=== PATIENT | female | born 1985 | race Caucasian/White ===

== ENCOUNTER 2019-03-20 21:09 | Emergency (ER) | payer OTHER ==
[2019-03-20 21:20] VITALS: BP 131/96; PULSE 78
--- NOTE | 2019-03-20 22:21 | EDM.PDOC ---
ED HPI GENERAL MEDICAL PROBLEM - General Chief Complaint: Cardiovascular Problem Stated Complaint: LEFT ARM PAIN FAST HEART RATE NEW THYROID MED Time Seen by Provider: 03/20/19 21:11 Source of Information: Reports: Patient History Limitations: Reports: No Limitations - History of Present Illness INITIAL COMMENTS - FREE TEXT/NARRATIVE: patient presents with intermittent left-sided chest pain, stabbing pain that causes sharp pain into the left sided chest for the shoulder blade, not associated with the syncope or near-syncope no diaphoresis no nausea or vomiting. She occasionally notes, to the left neck and fell a little numbness to the left upper posterior arm. Had palpitations last night, is currently getting re-started back on thyroid replacement for hypothyroidism. She has had weight gain. She is a nonsmoker, no family history of any heart disease, paternal grandfather with the stroke. No history of any diabetes, unknown cholesterol levels, no DVT risk factors. No lower extremity swelling. Nothing really makes the pain better or worse occurs at rest. Using stressors, no anxiety. Onset: Sudden Duration: Minutes:, Intermittent, Waxing/Waning Location: Reports: Chest Quality: Reports: Sharp Severity: Moderate Improves with: Reports: None Worsens with: Reports: None Associated Symptoms: Denies: Cough, Diaphoresis, Headaches, Nausea/Vomiting Bilateral Chest Pain Score (Numeric/FACES): 2 - Related Data Allergies Allergy/AdvReac Type Severity Reaction Status Date / Time cefaclor [From Ceclor] Allergy Unknown Hives Verified 03/20/19 21:20 MST gluten Allergy Unknown Abdominal Verified 03/20/19 21:20 MST Pain Home Meds: Home Meds Cholecalciferol (Vitamin D3) [Vitamin D] 5,000 mg PO DAILY 03/20/19 [History] Levothyroxine [Synthroid] 100 mg PO DAILY 03/20/19 [History] Past Medical History [employer] History: Reports: Musculoskeletal History: Reports: Other (See Below) Other Musculoskeletal History: begein follicuation syndrome Endocrine/Metabolic History: Reports: Hypothyroidism Dermatologic History: Reports: Other (See Below) Other Dermatologic History: hydranitis - Past Surgical History GI Surgical History: Reports: Colonoscopy Female Surgical History: Reports: Section Social & Family History - Family History Family Medical History: Noncontributory - Tobacco Use Smoking Status *Q: Never Smoker - Caffeine Use Caffeine Use: Reports: Coffee - Recreational Drug Use Recreational Drug Use: No ED ROS GENERAL - Review of Systems Review Of Systems: See Below Constitutional: Denies: Fever, Chills, Diaphoresis HEENT: Reports: No Symptoms. Denies: Eye Discharge, Rhinitis, Sinus Problem, Vertigo Respiratory: Reports: No Symptoms. Denies: Shortness of Breath, Cough Cardiovascular: Reports: No Symptoms, Chest Pain, Lightheadedness, Palpitations. Denies: Blood Pressure Problem, Dyspnea on Exertion, Orthopnea, PND, Syncope Endocrine: Denies: Fatigue GI/Abdominal: Denies: Abdominal Pain, Diarrhea, Nausea, Vomiting : Denies: Dysuria Musculoskeletal: Reports: No Symptoms Skin: Denies: Bruising, Rash Neurological: Reports: Dizziness. Denies: Headache, Numbness, Paresthesia, Tingling Psychiatric: Reports: No Symptoms. Denies: Anxiety Hematologic/Lymphatic: Reports: No Symptoms ED EXAM, GENERAL - Physical Exam Exam: See Below Exam Limited By: No Limitations General Appearance: Alert, WD/WN, No Apparent Distress Nose: Normal Inspection Throat/Mouth: Normal Inspection Head: Atraumatic, Normocephalic Neck: Normal Inspection, Supple, Non-Tender. No: Lymphadenopathy (L), Lymphadenopathy (R) Respiratory/Chest: No Respiratory Distress, Lungs Clear, Normal Breath Sounds, No Accessory Muscle Use, Other (Principal chest pain left sided.) Cardiovascular: Normal Peripheral Pulses, Regular Rate, Rhythm, No Edema, No JVD , No Murmur GI/Abdominal: Normal Bowel Sounds, Soft, Non-Tender, No Organomegaly, No Distention Extremities: Normal Inspection, No Pedal Edema, Normal Capillary Refill Neurological: Alert, Oriented, No Motor/Sensory Deficits Psychiatric: Normal Affect, Normal Mood. No: Anxious Skin Exam: Warm, Dry. No: Diaphoretic EKG INTERPRETATION EKG Date: 03/20/19 Rhythm: NSR (normal sinus rhythm rate of 77 [place] 117 QRS with 91 QT corrected 446 , no acute ischemic changes noted.) Course - Vital Signs Last Recorded V/S: Last Vital Signs Temp 99.0 F 03/20/19 21:14 [facility] Pulse 78 03/20/19 21:14 [facility] Resp 20 03/20/19 21:14 [facility] BP 131/96 H 03/20/19 21:14 [facility] Pulse Ox 97 03/20/19 21:14 MST - Orders/Labs/Meds Orders: Active Orders 24 hr Category Date Time Status EKG Documentation Completion [RC] STAT Care 03/20/19 21:37 Active Chest 2V [CR] Stat Exams 03/20/19 21:36 Taken Labs: Laboratory Tests 03/20/19 03/20/19 03/20/19 Range/Units 21:49 MST 21:49 MST 21:49 MST WBC 10.29 H (3.98-10.04) K/mm3 RBC 4.97 (3.98-5.22) M/mm3 Hgb 15.5 (11.2-15.7) gm/dl Hct 45.3 H (34.1-44.9) % MCV 91.1 (79.4-94.8) fl MCH 31.2 (25.6-32.2) pg MCHC 34.2 (32.2-35.5) g/dl RDW Std Deviation 44.0 (36.4-46.3) fL Plt Count 234 (182-369) K/mm3 MPV 12.0 (9.4-12.3) fl Neutrophils % (Manual) 78 H (40-60) % Band Neutrophils % 0 (0-10) % Lymphocytes % (Manual) 17 L (20-40) % Atypical Lymphs % 0 % Monocytes % (Manual) 2 (2-10) % Eosinophils % (Manual) 3 (0.7-5.8) % Basophils % (Manual) 0 L (0.1-1.2) Platelet Estimate Adequate RBC Morph Comment Normal D-Dimer, Quantitative < 0.19 L (0.19-0.50) mg/L Sodium 138 (136-145) mEq/L Potassium 3.8 (3.5-5.1) mEq/L Chloride 101 (98-107) mEq/L Carbon Dioxide 24 (21-32) mEq/L Anion Gap 16.8 H (5-15) BUN 25 H (7-18) mg/dL Creatinine 1.0 (0.55-1.02) mg/dL Est Cr Clr Drug Dosing 66.19 mL/min Estimated GFR (MDRD) > 60 (>60) mL/min BUN/Creatinine Ratio 25.0 H (14-18) Glucose 92 (74-106) mg/dL Calcium 9.4 (8.5-10.1) mg/dL Total Bilirubin 0.4 (0.2-1.0) mg/dL AST 27 (15-37) U/L ALT 29 (14-59) U/L Alkaline Phosphatase 89 (46-116) U/L Troponin I < 0.017 (0.00-0.056) ng/mL Total Protein 7.8 (6.4-8.2) g/dl Albumin 4.3 (3.4-5.0) g/dl Globulin 3.5 gm/dL Albumin/Globulin Ratio 1.2 (1-2) Lipase 155 (73-393) U/L - Radiology Interpretation Free Text/Narrative:: Two-view chest x-ray shows normal cardiac silhouette, no pleural effusion, no obvious infiltrates noted. No widened mediastinum, no acute findings noted. - Re-Assessments/Exams Free Text/Narrative Re-Assessment/Exam: 03/20/19 22:22 Sodium 138 potassium 3.1 chloride 101 CO2 is 24 1 is pending crit and 1 pending clearance is 66, blood glucose is 92 LFTs are normal troponin less than 0.017 d- dimer negative, blood cell count 10,200, hemoglobin 15.5 hematocrit 45 platelet count 34,070% neutrophils 03/20/19 23:06 patient doing well, suspect this may in fact be musculoskeletal, doubt acute coronary syndrome, no arrhythmia noted, no prolonged QT syndrome, no delta waves. The patient follow up with her primary care physician Departure - Departure Time of Disposition: 23:07 Disposition: Home, Self-Care 01 Condition: Good Clinical Impression: Atypical chest pain Instructions: Chest Wall Pain, [id number] Referrals: Debra Batista MD [Primary Care Provider] - Forms: ED Department Discharge Additional Instructions: Follow-up with your primary care provider for recheck evaluation. may try Motrin or ibuprofen for pain. Return if any increasing shortness of breath, coughing, dizziness, fainting spell, weakness, worsening - My Orders Last 24 Hours: My Active Orders 03/20/19 21:36 Chest 2V [CR] Stat 03/20/19 21:37 EKG Documentation Completion [RC] STAT - Assessment/Plan Last 24 Hours: My Active Orders 03/20/19 21:36 Chest 2V [CR] Stat 03/20/19 21:37 EKG Documentation Completion [RC] STAT
--- NOTE | 2019-03-21 07:01 | CR ---
Chest: Two views of the chest were obtained. Comparison: No prior chest x-ray. Heart size and mediastinum are normal. Lungs are clear. Bony structures appear within normal limits. Impression: 1. Nothing acute is appreciated on two-view chest x-ray. Diagnostic code #1
== END 2019-03-20 23:16 | disposition home or self-care (01) ==
LOC: JD.ED 21:09
DX: R07.89 Other chest pain (principal); E03.9 Hypothyroidism, unspecified; Z88.1 Allergy status to other antibiotic agents; Z91.018 Allergy to other foods; Z79.899 Other long term (current) drug therapy
CPT/HCPCS: 36415; 71046; 71046-26; 80053; 83690; 84484; 85007; 85027; 85379; 93005; 93010; 99284; 99285-25